=== PATIENT | female | born 1960 | race Caucasian/White ===

== ENCOUNTER → 2022-01-05 | Outpatient (CLI) | payer MEDICARE ==
[~2022-01-05] MED LIST: DCS100C PO; HYDR1TAB PO
== END ==
LOC: CARD 08:50
PROVIDERS: ATTEND Pediatrics
DX: R00.2 Palpitations (principal)
CPT/HCPCS: 93225; 93226

== ENCOUNTER → 2022-03-21 | Outpatient (CLI) | payer MEDICARE | LOC: CARD 09:30 | PROVIDERS: ATTEND Internal Medicine Cardiovascular Disease | DX: I11.9 Hypertensive heart disease without heart failure (principal); I25.10 Atherosclerotic heart disease of native coronary artery without angina pectoris | CPT/HCPCS: 93306 ==

== ENCOUNTER → 2022-04-11 | Outpatient (CLI) | payer MEDICARE ==
[~2022-04-11] MED LIST changes: +CATHETER FLUSH 10 ML SYR IVP PRN
[2022-04-11 09:17] VITALS: BP 158/78
--- NOTE | 2022-04-11 12:07 | Cardiology Stress Test Report ---
Stress Test Report Date of Procedure/Referring: Date of Procedure: Apr 11, 2022 PCP Altagracia Banda Aprn Admitting Physician Admitting Physician: Attending Physician: Devan Nicholson MD Indications: HTN Baseline Heart Rate: 68 Baseline Blood Pressure: Blood Pressure Systolic: 158 Blood Pressure Diastolic: 78 Vital Signs Date Time Temp Pulse Resp B/P (MAP) Pulse Ox O2 Delivery O2 Flow Rate FiO2 04/11/22 09:17 68 158/78 (104) 97 Baseline Vital Signs Vital Signs Date Time Temp Pulse Resp B/P (MAP) Pulse Ox O2 Delivery O2 Flow Rate FiO2 04/11/22 09:17 68 158/78 (104) 97 Baseline EKG: Baseline EKG: NSR Summary: After explaining the procedure and details to the patient, she signed the consent and was brought to the stress nuclear laboratory. Patient exercised on standard Josh protocol, EKG, heart rate and blood pressure were monitored continuously, resting and stress doses of radio tracer were injected, imaging was acquired and reviewed in the short axis, horizontal long axis and vertical long axis views Patient was able to exercise for a total of 4 minutes on Josh protocol, METs 5.8 Maximum heart rate 143 Maximum blood pressure 180/99 Stress EKG, Minimal nondiagnostic changes Recovery EKG, Return to baseline TID: 1.03 SSS: 3 SDS: 2 EF: 85 Conclusion: 1. Fair exercise tolerance for a total of 4 minutes on standard Josh protocol, 5.8 METS achieving 92% of maximal expected heart rate 2. Appropriate heart rate response to exercise with hypertensive response to exercise with peak blood pressure 180/99 return to baseline during recovery 3. Nondiagnostic EKG changes with exercise return to baseline during recovery 4. No significant ischemia or infarction on SPECT images 5. Normal left ventricular size, ejection fraction 85% DEVAN NICHOLSON MD Apr 11, 2022 12:07
== END ==
LOC: CARD 07:30
PROVIDERS: ATTEND Internal Medicine Cardiovascular Disease
DX: I10 Essential (primary) hypertension (principal); I25.10 Atherosclerotic heart disease of native coronary artery without angina pectoris
CPT/HCPCS: 78452; 93017; A9502

== ENCOUNTER 2022-05-04 06:11 | Outpatient (CLI) | payer MEDICARE ==
[~2022-05-04] VITALS: Ht 152.4 cm; Wt 64.0 kg
[~2022-05-04 06:11] MED LIST changes: -CATHETER FLUSH 10 ML SYR IVP PRN
[2022-05-05] MEDS ORDERED: ASPI-999 PO (11:45)
[2022-05-05] MEDS ORDERED: FLUT16SP22 NS (11:45)
[2022-05-05] MEDS ORDERED: ATOR20TA66 PO (11:46)
[2022-05-05] MEDS ORDERED: PANT40TA52 PO (11:48)
[2022-05-05] MEDS ORDERED: PROP80CA4 PO (11:48)
[2022-05-05] MEDS ORDERED: METO-351 PO (11:48)
[2022-05-05] MEDS ORDERED: MELO15TA39 PO (11:48)
[2022-05-05] MEDS ORDERED: LISI20TA26 PO (11:48)
[2022-05-05] MEDS ORDERED: GABA-486 PO (11:48)
== END 2022-05-05 11:55 | disposition home or self-care (01) ==
LOC: PREOP 06:11
PROVIDERS: ATTEND Surgery
DX: Z01.818 Encounter for other preprocedural examination (principal)

== ENCOUNTER 2022-05-13 11:51 | Day surgery (SDC) | payer MEDICARE ==
[~2022-05-13] VITALS: Ht 152.4 cm; Wt 64.0 kg
[~2022-05-13 11:51] MED LIST changes: +ASPI-999 PO; +ATOR20TA66 PO; +FLUT16SP22 NS; +GABA-486 PO; +LISI20TA26 PO; +MELO15TA39 PO; +METO-351 PO; +PANT40TA52 PO; +PROP80CA4 PO
[2022-05-13] MEDS ORDERED: LACTATED RINGERS 1,000 ML IV STA (12:01)
[2022-05-13] MEDS ORDERED: HURRICAINE EXT TUBE (BENZOCAINE) XX PRN (12:15)
[2022-05-13 12:20] VITALS: BP 148/91
--- NOTE | 2022-05-13 13:44 | Progress Note-Pre Operative ---
Pre-Operative Progress Note Date of Available H&P: Apr 20, 2022 Date H&P Reviewed: May 13, 2022 Time H&P Reviewed: 13:44 History & Physical: H&P Reviewed, Patient Examed, No changes noted Pre-Operative Diagnosis: gerd OBINNA ROSARIO DO May 13, 2022 13:44
[2022-05-13] MEDS ORDERED: proPOfol 200 MG/20 ML (DIPRIVAN) VIAL IV ONE (14:02)
--- NOTE | 2022-05-13 14:13 | Progress Note-Post Operative ---
Post-Operative Progess Note Surgeon (s)/Wrap Knitting Machine Operator (s) Surgeon OBINNA ROSARIO DO Wrap Knitting Machine Operator: N/A Pre-Operative Diagnosis gerd Post-Operative Diagnosis Gastritis Small Hiatal hernia Procedure & Operative Findings Date of Procedure 05/13/22 Procedure Performed/Findings EGD with biopsies at antrum and GE Small hiatal hernia Gastritis Anesthesia Type per event staff Estimated Blood Loss Estimated blood loss (mL): none Specimens/Packing Specimens Removed biopsies of antrum and GE OBINNA ROSARIO DO May 13, 2022 14:13
[2022-05-13 14:15] VITALS: BP 119/72
--- NOTE | 2022-05-13 14:15 | Discharge Inst-Simple/Standard ---
Discharge Inst-Standard Reconcile Patient Problems Problems Reviewed?: Yes Patient Instructions/Follow Up Plan of Care/Instructions/FU: 2 week f/u with Dr. Burns Activity as Tolerated: Yes Discharge Diet: Regular Diet OBINNA BURNS DO May 13, 2022 14:15
[2022-05-13 14:20] VITALS: BP 123/76
[2022-05-13 14:25] VITALS: BP 129/78
--- NOTE | 2022-05-13 14:29 | Anesthesia-General Post-Op ---
MAC Patient Condition Mental Status/LOC: Same as Preop Cardiovascular: Satisfactory Nausea/Vomiting: Absent Respiratory: Satisfactory Pain: Controlled Complications: Absent Post Op Complications Complications None Follow Up Care/Instructions Patient Instructions None needed. Anesthesiology Discharge Order Discharge Order Patient is doing well, no complaints, stable vital signs, no apparent adverse anesthesia problems. No complications reported per nursing. SARAH FARNSWORTH DO May 13, 2022 14:29
[2022-05-13 14:30] VITALS: BP 129/78
[2022-05-13 14:41] VITALS: BP 129/78
--- NOTE | 2022-05-13 22:27 | OPERATIVE REPORT ---
DATE OF SERVICE: 05/13/2022 PREOPERATIVE DIAGNOSES: Gastroesophageal reflux disease. POSTOPERATIVE DIAGNOSES: Small hiatal hernia, slight gastritis. PROCEDURE: EGD with biopsy. SURGEON: Obinna Burns DO ANESTHESIA: Per MDA. ESTIMATED BLOOD LOSS: None. COMPLICATIONS: None. INDICATIONS: The patient is a 62-year-old female with worsening reflux symptoms. She understands risks and benefits of procedures and then wishes to proceed. Consent was signed in the chart. DESCRIPTION OF PROCEDURE: The patient was taken to the endoscopy suite, placed in left lateral recumbent position. Timeout was performed. Scope was inserted in mouth, down the esophagus, stomach and into the duodenum without difficulty. No polyps, masses or ulcerations within the duodenum. Scope was slowly retracted back into the stomach where it was further insufflated. Slight erythematous changes suggestive of slight gastritis present. Biopsy of the antrum was obtained. Scope was retroflexed noting a small hiatal hernia, no other pathology. Scope was returned to its normal position, slowly withdrawn to distal esophagus. Biopsy of the GE junction was obtained. No polyps, masses or ulcerations. Scope was then slowly retracted back until completely removed. The patient tolerated the procedure well without any complications. She was taken to recovery room in stable condition. RECOMMENDATIONS: The patient will follow up in 2 weeks to discuss pathology results. The patient is already on Protonix, so we will await biopsy results. We would consider stopping meloxicam and if this does not improve, we would also consider starting some Carafate 1 gram four times a day. Further recommendations pending results. Any issues before that be seen at that time. Job ID: [id number] DocumentID: [id number] Dictated Date: 05/13/2022 14:14:12 Bean Snipper Date: 05/13/2022 22:26:23 Dictated By: OBINNA BURNS DO
== END 2022-05-13 14:45 | disposition home or self-care (01) ==
LOC: ENDO 11:51
PROVIDERS: ATTEND Surgery
DX: K29.70 Gastritis, unspecified, without bleeding (principal); K44.9 Diaphragmatic hernia without obstruction or gangrene; K21.9 Gastro-esophageal reflux disease without esophagitis; Z79.899 Other long term (current) drug therapy; Z87.891 Personal history of nicotine dependence

== ENCOUNTER → 2022-06-15 | Outpatient (CLI) | payer MEDICARE ==
--- NOTE | 2022-06-15 10:56 | Diagnostic Imaging Report ---
PROCEDURE: US Gallbladder. TECHNIQUE: Multiple real-time grayscale images were obtained over the right upper quadrant in various projections. INDICATION: Right upper quadrant pain Liver parenchyma is homogeneous with normal echotexture. Portal vein is patent with hepatopetal flow. Gallbladder is clear with no stones or wall thickening. The common duct is not dilated. Pancreas appears normal. Aorta and IVC appear normal. Right kidney measures 8.7 cm in length and appears normal. There is no ascites. IMPRESSION: Negative right upper quadrant ultrasound. Dictated by: Dictated on workstation # [id number]
== END ==
LOC: RAD 08:00
PROVIDERS: ATTEND Surgery
DX: R10.11 Right upper quadrant pain (principal)
CPT/HCPCS: 76705

== ENCOUNTER → 2022-06-15 | Outpatient (CLI) | payer MEDICARE ==
[~2022-06-15] MED LIST changes: +CATHETER FLUSH 10 ML SYR IVP PRN
--- NOTE | 2022-06-15 16:06 | Diagnostic Imaging Report ---
INDICATION: Right upper quadrant pain. Patient was administered 5.0 mCi technetium 99m Choletec intravenously and imaging over the abdomen was performed. At 60 minutes patient ingested 8 ounces of Ensure and the gallbladder ejection fraction was calculated. There is homogeneous uptake of activity by the liver with prompt excretion of activity into the common duct and gallbladder. There is normal passage of activity into the small bowel. Gallbladder ejection fraction is lower limits of normal at 33%. IMPRESSION: 1. Patent cystic duct and common bile duct. 2. Lower limits of normal gallbladder ejection fraction of 33%. Dictated by: Dictated on workstation # [id number]
== END ==
LOC: CARD 08:11
PROVIDERS: ATTEND Surgery
DX: R10.11 Right upper quadrant pain (principal)
CPT/HCPCS: 78227; A9537

== ENCOUNTER → 2022-08-18 | Outpatient (CLI) | payer MEDICARE ==
[~2022-08-18] MED LIST changes: -CATHETER FLUSH 10 ML SYR IVP PRN
== END | disposition home or self-care (01) ==
LOC: PREOP 05:28
PROVIDERS: ATTEND Surgery
DX: Z01.818 Encounter for other preprocedural examination (principal)